=== PATIENT | male | born 1960 | race Caucasian/White ===

== ENCOUNTER → 2021-08-18 16:32 | Outpatient (CLI) | payer BC, SELFPAY ==
--- NOTE | 2021-08-18 16:32 | MR_ITS ---
PROCEDURE: MR HEAD/BRAIN WO CON CLINICAL INDICATION: TIA COMPARISON: No exams were available for comparison TECHNIQUE: Routine multiplanar multi echo sequences are performed without gadolinium enhancement. FINDINGS: No midline shift, mass effect, intracranial hemorrhage, or hydrocephalus. No evidence of acute infarction. No areas of restricted diffusion. The cerebellopontine angles, cerebellum, brainstem and mid brain have an unremarkable appearance. Minimal nonspecific periventricular T2 white matter hyperintensity normal for patient's stated age. No other T2 white matter hyperintensities are apparent. Patient gives a history have a having a small aneurysm. There is a small area of decreased T2 signal in the region of the anterior communicating artery on the left possibly due to small aneurysm. This is nonspecific and could be related to small aneurysm and may be better demonstrated with MRA. This is best seen on series 6, image 11 measuring approximately 3 mm. The pituitary, optic chiasm, corpus callosum, and craniocervical junction have an unremarkable appearance. No mastoid effusion or sinus air-fluid level. There is a slightly dysconjugate gaze with both globes somewhat turn medially. IMPRESSION: 1. No acute intracranial findings. 2. 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 3. Dysconjugate gaze Dictated by: Willis Marshall MD 08/21/2021 08:10 Willis Marshall MD in [place] 08/21/2021 08:10
== END ==
PROVIDERS: PCP Family Medicine; Visit Provider Family Medicine
DX: G45.9 Transient cerebral ischemic attack, unspecified (principal)
CPT/HCPCS: 70551